=== PATIENT | female | born 1945 | race Caucasian/White ===

== ENCOUNTER → 2016-08-05 | Outpatient (REF) | payer MEDICARE ==
[~2016-08-05] MED LIST: CARD120T4 PO; LISI-538 PO; LISI10TA4 PO; LORA10TA2 PO; XARE20TA PO
[2016-08-05 11:49] LABS: MEAN CORPUSCULAR HEMOGLOBIN 33.8 pg (27.0-33.0); MEAN CORPUSCULAR HGB CONC 33.5 g/dl (32.0-36.5); MEAN CORPUSCULAR VOLUME 100.8 fl (80.0-96.0); RED CELL DISTRIBUTION WIDTH 12.8 % (11.5-14.5); WHITE BLOOD COUNT 6.1 K/mm3 (4.0-10.0)
[2016-08-05 12:20] LABS: ALBUMIN/GLOBULIN RATIO 1.43 (1.00-1.93); BILIRUBIN,TOTAL 0.7 MG/DL (0.2-1.0); CREATININE FOR GFR 1.14 MG/DL (0.55-1.02); FREE T4 1.13 NG/DL (0.76-1.46); GLOMERULAR FILTRATION RATE 49.7 (>39); POTASSIUM SERUM 5.1 MEQ/L (3.5-5.1); TOTAL PROTEIN 6.8 GM/DL (6.4-8.2)
== END ==
LOC: M SFHCPLAZ 08:30
PROVIDERS: ATTEND Family Medicine
DX: I48.0 Paroxysmal atrial fibrillation (principal); E78.4 Other hyperlipidemia

== ENCOUNTER → 2016-12-30 | Outpatient (REF) | payer MEDICARE ==
[2016-12-30 13:32] LABS: CALCIUM LEVEL 9.4 MG/DL (8.8-10.2); CREATININE FOR GFR 1.05 MG/DL (0.55-1.02); GLOMERULAR FILTRATION RATE 54.7 (>39); POTASSIUM SERUM 5.1 MEQ/L (3.5-5.1)
== END ==
LOC: M SFHCPLAZ 08:09
PROVIDERS: ATTEND Family Medicine
DX: R73.03 Prediabetes (principal)

== ENCOUNTER → 2018-10-05 | Outpatient (CLI) | payer MEDICARE ==
[~2018-10-05] MED LIST changes: +LORA-243 PO; -LORA10TA2 PO
[2018-10-05 13:01] LABS: HEMATOCRIT 48.6 % (36.0-47.0); HEMOGLOBIN 16.2 g/dl (12.0-15.5); MEAN CORPUSCULAR HEMOGLOBIN 33.1 pg (27.0-33.0); MEAN CORPUSCULAR HGB CONC 33.3 g/dl (32.0-36.5); MEAN CORPUSCULAR VOLUME 99.2 fl (80.0-96.0); PLATELET COUNT, AUTOMATED 241 10^3/uL (150-450); WHITE BLOOD COUNT 6.2 10^3/uL (4.0-10.0)
[2018-10-05 13:37] LABS: ALBUMIN 3.9 GM/DL (3.2-5.2); BILIRUBIN,TOTAL 0.7 MG/DL (0.2-1.0); CALCIUM LEVEL 9.3 MG/DL (8.8-10.2); CHOLESTEROL RISK RATIO 3.657 (<5); CREATININE FOR GFR 1.05 MG/DL (0.55-1.30); FREE T4 1.02 NG/DL (0.76-1.46); GLOMERULAR FILTRATION RATE 54.4 (>39); POTASSIUM SERUM 4.8 MEQ/L (3.5-5.1); THYROID STIMULATING HORMONE 1.33 uIU/ML (0.358-3.740); TOTAL PROTEIN 6.7 GM/DL (6.4-8.2)
[2018-10-05 13:52] LABS: MALB URINE SIEMENS 45.8 MG/L; MAU/CREAT RATIO 21.8 MCG/MG (0.0-30.0)
[2018-10-05 14:22] LABS: HEMOGLOBIN A1c 5.7 %
== END ==
LOC: M WUC 08:41
PROVIDERS: ATTEND Family Medicine
DX: I48.0 Paroxysmal atrial fibrillation (principal); I11.9 Hypertensive heart disease without heart failure; E78.49 Other hyperlipidemia; E11.9 Type 2 diabetes mellitus without complications

== ENCOUNTER 2020-08-22 18:34 | Inpatient (IN) | payer MEDICARE ==
[~2020-08-22] VITALS: Ht 162.6 cm; Wt 83.4 kg
[~2020-08-22 18:34] MED LIST changes: -LISI-538 PO; +LISI10TA22 PO; -LISI10TA4 PO; +LISI20TA33 PO
[2020-08-22] MEDS ORDERED: DILT1TAB3 (18:55)
[2020-08-22] MEDS ORDERED: KETOROLAC 30 MG/ML 1ML VIAL IV ONE (20:05)
[2020-08-22 20:26] LABS: BASO % 0.2 % (0.0-1.0); HEMATOCRIT 42.1 % (36.0-47.0); HEMOGLOBIN 13.9 g/dl (12.0-15.5); LYMPH # 1.4 10^3/uL (1.5-5.0); MEAN CORPUSCULAR HEMOGLOBIN 32.6 pg (27.0-33.0); MEAN CORPUSCULAR VOLUME 98.6 fl (80.0-96.0); MONO # 0.6 10^3/uL (0.0-0.8); MONO % 4.1 % (2.0-8.0); NEUTROPHILS # 12.8 10^3/uL (1.5-8.5); NEUTROPHILS % 85.9 % (36.0-66.0); PLATELET COUNT, AUTOMATED 309 10^3/uL (150-450); RED BLOOD COUNT 4.27 10^6/uL (4.00-5.40)
[2020-08-22] MEDS ORDERED: ISOVUE-370 76% 100ML VIAL As Ordered ONE (20:53)
[2020-08-22 20:54] LABS: ALBUMIN 2.9 GM/DL (3.2-5.2); BILIRUBIN,DIRECT 0.2 MG/DL (0.0-0.2); BILIRUBIN,TOTAL 0.3 MG/DL (0.2-1.0); TOTAL PROTEIN 6.6 GM/DL (6.4-8.2)
--- NOTE | 2020-08-22 20:57 | REPVR ---
PROCEDURE INFORMATION: Exam: XR Right Hip Exam date and time: 08/22/2020 8:23 PM Age: 75 years old Clinical indication: Other: Hip pain TECHNIQUE: Imaging protocol: XR Right hip. Views: 2 or 3 views hip with pelvis when performed. COMPARISON: No relevant prior studies available. FINDINGS: Bones/joints: Degenerative changes of the lower lumbar spine. No fracture. The hip joint is adequately well maintained. Soft tissues: Unremarkable. IMPRESSION: Negative right hip. Electronically signed by: Ernesto Machado On 08/22/2020 20:56:53 PM
--- NOTE | 2020-08-22 22:09 | REPVR ---
PROCEDURE INFORMATION: Exam: CT Abdomen And Pelvis With Contrast Exam date and time: 08/22/2020 8:55 PM Age: 75 years old Clinical indication: Abdominal pain; Generalized; Additional info: Abdominal pain on rlq TECHNIQUE: Imaging protocol: Computed tomography of the abdomen and pelvis with contrast. Radiation optimization: All CT scans at this facility use at least one of these dose optimization techniques: automated exposure control; mA and/or kV adjustment per patient size (includes targeted exams where dose is matched to clinical indication); or iterative reconstruction. Contrast material: ISOVUE 370; Contrast volume: 100 ml; Contrast route: INTRAVENOUS (IV); COMPARISON: CR Hip, Ap,Lat RIGHT 08/22/2020 8:08 PM FINDINGS: Lungs: Slight bibasilar interstitial coarsening. Liver: Probable small right hepatic cyst measuring up to 8 mm. Gallbladder and bile ducts: Normal. No calcified stones. No ductal dilation. Pancreas: Normal. No ductal dilation. Spleen: Normal. No splenomegaly. Adrenal glands: Normal. No mass. Kidneys and ureters: Nonobstructing right renal calculus. Stomach and bowel: There is colonic diverticulosis without evidence of diverticulitis. Appendix: Large collection of fluid and gas which is irregular in configuration in the lateral right abdomen which measures approximately 5.1 x 5.5 x 5.0 cm. This extends caudally and laterally from the cecal tip. There is associated fluid-filled tubular structure along the medial aspect of the collection with some areas of an incomplete wall suggesting the appendix which has ruptured. The collection of fluid also contains a few calcific densities which are likely appendicoliths. Findings are most consistent with ruptured appendicitis with large periappendiceal abscess. Intraperitoneal space: Unremarkable. No free air. No significant fluid collection. Vasculature: Unremarkable. No abdominal aortic aneurysm. Lymph nodes: Unremarkable. No enlarged lymph nodes. Urinary bladder: Unremarkable as visualized. Reproductive: Unremarkable as visualized. Bones/joints: Unremarkable. No acute fracture. Soft tissues: Unremarkable. IMPRESSION: 1. Ruptured appendicitis with periappendiceal abscess which contains a few appendicoliths and measures 5.1 x 5.5 x 5.0 cm. 2. Nonobstructing right renal calculus. 3. Colonic diverticulosis without diverticulitis. Electronically signed by: Ernesto Machado On 08/22/2020 22:09:09 PM
[2020-08-22] MEDS ORDERED: PIPERACILLIN/TAZOBACTAM SOD 3.375 GM in D5W MINI-BAG PLUS 50 ML IV ONE (22:20)
[2020-08-22] MEDS ORDERED: MORPHINE 2 MG/ML 1ML VIAL (J2270) IV ONE (22:30)
[2020-08-22] MEDS ORDERED: ONDANSETRON 4MG/2ML VIAL IV ONE (22:30)
[2020-08-22] MEDS ORDERED: D31000TA2 PO (23:18)
[2020-08-22] MEDS ORDERED: OYST1TAB PO (23:18)
[2020-08-22] MEDS ORDERED: VITMTA PO (23:18)
[2020-08-22] MEDS ORDERED: ZINC1TAB2 PO (23:18)
[2020-08-22] MEDS ORDERED: AIRB1CHW PO (23:18)
[2020-08-22] MEDS ORDERED: DILT240C82 PO (23:19)
[2020-08-22 23:25] LABS: RSV AMPLIFICATION NEGATIVE (NEGATIVE)
[2020-08-23] VITALS (7 sets, daily range): BP systolic 110–155; BP diastolic 70–89
[2020-08-23] MEDS ORDERED: ONDANSETRON 4MG/2ML VIAL IV PRN
--- NOTE | 2020-08-23 01:31 | HPE ---
HISTORY AND PHYSICAL DATE OF ADMISSION: 08/23/2020 ADMITTING DIAGNOSIS: Appendicitis with abscess. HISTORY OF PRESENT ILLNESS: The patient presented to the Emergency Department on the evening of the 22 of August complaining of pain in the low right lower quadrant of the abdomen, which had begun approximately five days earlier. Pain had always been in the same spot. It has worsened in intensity with each passing day. She believes she had some sweats about two days ago, but has not noticed any definite fever. The discomfort became so severe that walking became quite painful. She therefore presented to the Emergency Department for evaluation. She was found to have tenderness in the right lower quadrant laterally. She had labs that showed an elevated white blood cell count to 15,[address] scan of the abdomen and pelvis was obtained, which showed an abscess with evidence for appendicitis. She is now for admission for management of her appendiceal abscess. ALLERGIES: Patient has no known allergies. MEDICATIONS: Include: 1. Loratadine 10 mg p.o. daily. 2. Lisinopril 20 mg p.o. daily. 3. Vitamin D3 1,000 units p.o. daily. 4. Multivitamin daily. 5. Calcium carbonate 500 mg tablets daily. 6. Zinc 50 mg one tablet daily. 7. Diltiazem extended release 240 mg capsules once daily. 8. Aspirin one daily. PAST SURGICAL HISTORY: Patient has had a tubal ligation. She has had cataract surgery. PAST MEDICAL HISTORY: Significant for hypertension, she has atrial fibrillation, but has apparently declined any anticoagulation other than a daily aspirin. She has some allergies. She has a history of hyperlipidemia as well as type 2 diabetes. REVIEW OF SYSTEMS: Shows that the patient has had no history of stroke or seizure or chronic severe headaches. She denies any chest pain or palpitations, and does not know when she is or is not in atrial fibrillation. She has no cough or wheezing or sputum production. She denies any abdominal pain prior to her current episode. She has had no rectal bleeding. She denies any particular bone or joint issues. She denies any history of DVT or pulmonary embolus. She has been voiding without difficulty. SOCIAL HISTORY: Patient is . She is a nonsmoker and denies excessive alcohol intake. FAMILY HISTORY: Patient's father was in his late 70's from cancer and her mother in her mid 80's for unknown reasons. PHYSICAL EXAMINATION: Reveals a moderately obese pleasant woman lying quietly on the hospital stretcher. At the time of my exam, her pulse had been recorded as 104 and she had a temperature of 99.6 degrees. Her blood pressure was good and her room oxygen saturation was normal. Patient's skin was warm and dry. Sclerae are anicteric. Mucous membranes are moist. The neck shows no bruits. There is no mass evident. Heart exam shows an irregularly irregular rhythm. Lungs are clear to auscultation bilaterally. The abdomen is mildly to moderately obese. She has bowel sounds present in all four quadrants. She has no evident scars. She has a soft abdomen with tenderness to palpation in the lateral right lower quadrant. The remainder of the abdomen is without significant tenderness. Extremities are without edema. She has palpable radial and pedal pulses. LABORATORY STUDIES: White count 15,000. Differential count shows 86% neutrophils and 9% lymphocytes. Hemoglobin 14, hematocrit 42 and platelet count 309,000. She had a point of care chemistry profile showing sodium 134, potassium 3.4, chloride 96, CO2 28 and glucose 121, BUN 12 with creatinine 1. Remaining chemistry profile showed normal bilirubin with AST of 71, ALT of 104 and alkaline phosphatase of 173. Total protein 6.6 with albumin of 2.9. Lipase was normal as is the lactic acid. A urinalysis was done, which showed 3+ leukocyte esterase with 42 white cells and 5 red cells per high powered field. COVID serology was negative. IMAGING: She had a CT scan of the abdomen and pelvis, that revealed an abscess in the right lower quadrant surrounding the inflamed appendix. There appeared to be a couple of appendicoliths free within the abscess. She was noted to have a small renal stone on the right as well as some diverticulosis without diverticulitis of the colon. There was no evidence of any free intraabdominal fluid or free air. IMPRESSION: 1. Appendicitis with contained abscess. 2. Atrial fibrillation. 3. Hypertension. 4. Hyperlipidemia. 5. Diabetes mellitus type 2. 6. Obesity. PLAN: Patient was counseled that she has a contained abscess surrounding her inflamed appendix. I have recommended that we treat her with a percutaneous drain placement and antibiotics. She has already received one dose of Zosyn in the Emergency Department. I will continue this after admission. I will keep her n.p.o. tonight and arrange for her to have a percutaneous drain placed by the radiologist or interventional radiology in the morning. She will be provided with analgesics as necessary. She was counseled that surgical intervention right now would result in spillage of her abscess within the abdomen and potentially increase her risk for a worse infection. I advised her that if we are successful in treating her nonoperatively at this time that in the future once her infection has all cleared up, it may be prudent to return and perform an interval appendectomy. She had an opportunity to ask questions. She is agreeable with the plan. CHERYLE
[2020-08-23] MEDS: LR 1,000 ML IV SCH ×2 (02:05→10:35)
[2020-08-23] MEDS: PIPERACILLIN/TAZOBACTAM SOD 3.375 GM in D5W MINI-BAG PLUS 50 ML IV SCH ×4 (05:00→22:10)
[2020-08-23] MEDS: KETOROLAC 30 MG/ML 1ML VIAL IV PRN ×2 (05:00→10:57)
[2020-08-23 09:36] LABS: BASO % 0.2 % (0.0-1.0); HEMATOCRIT 36.4 % (36.0-47.0); HEMOGLOBIN 12.2 g/dl (12.0-15.5); LYMPH # 1.2 10^3/uL (1.5-5.0); LYMPH % 9.3 % (24.0-44.0); MEAN CORPUSCULAR HEMOGLOBIN 33.1 pg (27.0-33.0); MEAN CORPUSCULAR HGB CONC 33.5 g/dl (32.0-36.5); MEAN CORPUSCULAR VOLUME 98.6 fl (80.0-96.0); MONO # 0.8 10^3/uL (0.0-0.8); NEUTROPHILS # 11.1 10^3/uL (1.5-8.5); NEUTROPHILS % 83.7 % (36.0-66.0); PLATELET COUNT, AUTOMATED 276 10^3/uL (150-450); RED BLOOD COUNT 3.69 10^6/uL (4.00-5.40); WHITE BLOOD COUNT 13.2 10^3/uL (4.0-10.0)
[2020-08-23] MEDS: MULTIVITAMINS/MINERALS THERAP 1 TAB PO SCH (10:29)
[2020-08-23] MEDS: LORATADINE 10 MG TAB PO SCH (10:35)
[2020-08-23] MEDS: MORPHINE 2 MG/ML 1ML VIAL (J2270) IV PRN ×2 (11:03→20:51)
[2020-08-23] MEDS ORDERED: LIDOCAINE 1% MDV 20ML VIAL As Ordered ONE (11:25)
[2020-08-23] MEDS: POTASSIUM CHLORIDE 10 MEQ SR TABLET PO SCH ×3 (14:43→20:52)
--- NOTE | 2020-08-23 16:22 | REP ---
INDICATION: appendiceal abscess. COMPARISON: None. TECHNIQUE: The procedure was performed under the personal supervision of Dr. Jaiems. Patient has a history of a 5.1 x 5.5 x 5 cm periappendiceal abscess seen on a previous CT scan dated 08/22/2020. The risks and benefits of the procedure were explained to the patient and informed consent was obtained. The abscess was localized using ultrasound guidance. The skin was prepped and draped in a sterile fashion. 1% lidocaine was used as a local anesthetic. Using ultrasound guidance an 8 Arabic skater APDL catheter was inserted using trocar technique. 45 cc of brown colored proteinaceous fluid was withdrawn and sent to the lab for analysis. The abscess cavity was flushed with 410 cc aliquots of sterile saline. The catheter was affixed to the skin and a sterile dressing was applied. The catheter was connected to a gravity drainage bag. The patient tolerated the procedure well and there were no immediate complications. After the appropriate amount to monitored convalescence the patient was discharged from the department. FINDINGS: None IMPRESSION: Ultrasound-guided periappendiceal abscess drain with catheter placement. <Electronically signed by Dale Bhakta > 08/23/20 1614 <Electronically signed by Zaid Jaimes > 08/23/20 161
[2020-08-23] MEDS: ACETAMINOPH W/CODEINE #3 TAB UD PO PRN ×2 (17:55→22:10)
--- NOTE | 2020-08-23 18:23 | IPN ---
PROGRESS NOTE DATE: 08/23/2020 HISTORY: Patient was admitted early this morning with a roughly 5-day history of worsening right lower quadrant abdominal pain. She was found to have an elevated white count with a CT showing an appendiceal abscess, which was well walled off. She was scheduled for an ultrasound-guided drain placement, which was accomplished later this morning. She reports that her discomfort is significantly improved with the antibiotics and drainage. She tolerated some clear liquids at lunchtime/ Vital signs show that she has been afebrile since admission. Her pulse has remained variable. During her drainage procedure, it was noted to be approximately 160, and since return from the drain placement she is back down to about 108 most recently. Blood pressure is good. Intake and output show that she has had adequate urine output, though it is not well recorded. PHYSICAL EXAMINATION: Patient is alert and appears much more comfortable. Heart exam shows a very irregular rate at about 100-110. The lungs are clear. The abdomen is soft with active bowel sounds. She has a new drainage catheter draining some watery feculent-looking material into a drainage bag. LABORATORY STUDIES: Today show a white count of 13,000 with a differential showing 84% neutrophils and 9% lymphocytes. This is slightly improved from late last night. IMPRESSION: Patient is doing better now with antibiotics and drainage of her abscess. PLAN: We will continue the drain for now. Her Zosyn will be continued. We will recheck her labs in the morning. Her diet will be advanced from clear liquids to regular as tolerated. She was encouraged to be up ambulating. I counseled her that she will likely remain in the hospital for another day or two and then probably go home with the drain in place on oral antibiotics. CHERYLE
--- NOTE | 2020-08-23 21:06 | ECGEPIP ---
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 Electronically Signed on 08-23-2020 21:06:27 EDT by Jerald Villafana
[2020-08-23] MEDS ORDERED: PILL CUTTER 1 EACH XX PRN (22:55)
[2020-08-23] MEDS: SIMETHICONE 80MG CHEW TAB PO PRN (23:51)
[2020-08-24] MEDS: MORPHINE 2 MG/ML 1ML VIAL (J2270) IV PRN (01:36)
[2020-08-24 02:27] VITALS: BP 114/78
[2020-08-24] MEDS: PIPERACILLIN/TAZOBACTAM SOD 3.375 GM in D5W MINI-BAG PLUS 50 ML IV SCH ×4 (05:59→22:45)
[2020-08-24] MEDS: SIMETHICONE 80MG CHEW TAB PO PRN (05:59)
[2020-08-24] MEDS: ACETAMINOPH W/CODEINE #3 TAB UD PO PRN ×2 (06:01→20:18)
[2020-08-24 06:54] VITALS: BP 116/76
[2020-08-24] MEDS: LORATADINE 10 MG TAB PO SCH (08:09)
[2020-08-24] MEDS: MULTIVITAMINS/MINERALS THERAP 1 TAB PO SCH (08:09)
[2020-08-24 08:49] LABS: BASO % 0.3 % (0.0-1.0); EOS % 0.1 % (0.0-3.0); HEMATOCRIT 39.8 % (36.0-47.0); HEMOGLOBIN 13.1 g/dl (12.0-15.5); LYMPH # 1.2 10^3/uL (1.5-5.0); LYMPH % 9.2 % (24.0-44.0); MEAN CORPUSCULAR HEMOGLOBIN 32.7 pg (27.0-33.0); MEAN CORPUSCULAR HGB CONC 32.9 g/dl (32.0-36.5); MEAN CORPUSCULAR VOLUME 99.3 fl (80.0-96.0); MONO # 0.4 10^3/uL (0.0-0.8); NEUTROPHILS % 85.8 % (36.0-66.0); PLATELET COUNT, AUTOMATED 348 10^3/uL (150-450); RED BLOOD COUNT 4.01 10^6/uL (4.00-5.40); WHITE BLOOD COUNT 12.8 10^3/uL (4.0-10.0)
[2020-08-24 09:01] LABS: BLOOD UREA NITROGEN 15 MG/DL (7-18); CALCIUM LEVEL 8.3 MG/DL (8.8-10.2); CARBON DIOXIDE LEVEL 26 MEQ/L (21-32); CHLORIDE LEVEL 103 MEQ/L (98-107); CREATININE FOR GFR 0.85 MG/DL (0.55-1.30); GLOMERULAR FILTRATION RATE > 60.0 (>39); GLUCOSE, FASTING 171 MG/DL (70-100); POTASSIUM SERUM 4.2 MEQ/L (3.5-5.1); SODIUM LEVEL 136 MEQ/L (136-145)
[2020-08-24 10:00] VITALS: BP 112/74
--- NOTE | 2020-08-24 12:25 | IPNPDOC ---
Text Note Date of Service The patient was seen on 08/24/20. NOTE Gen. surgery. Dr Still. The patient is a 75-year-old female admitted 08/23/20 with worsening right lower quadrant abdominal pain and CT indicating appendiceal abscess which was well walled off. Status post ultrasound guided drain placement 08/23. The patient reports she is still having abdominal discomfort but it is improved compared to when she first came in. She had some pain overnight and was given Mylicon with some improvement. She denies nausea or vomiting. Initially 45 mL purulent drainage, over past 24 hours has had about 35 mL out in the drain. Afebrile Heart rate 106, respiratory rate 20, blood pressure 116/76, 97% room air. Gen. Patient is resting in bed, appears in no acute distress. MMM Lungs are clear to auscultation anteriorly. S1 and S2 irregularly irregular. Abdomen. Mildly distended but soft, tenderness is noted in the right upper and right lower quadrant areas. Drainage tube in place. Extremities are well-perfused with no edema. WBCs 12.8, downward trend. Hemoglobin 13.1, platelets 348. Blood culture 1 negative 24 hours. Abscess culture pending. Assessment/plan Appendiceal abscess status post drain placement. Patient is reviewed and examined as per this morning. Plan to continue with IV Zosyn. Drain in place. S/P irrigation as per Dr Still this AM. Abscess culture pending. A. fib. EKG atrial fibrillation on admission. Patient is known to have history of atrial fibrillation. Rate control with diltiazem 240 mg by mouth daily as outpatient. Same dose is continued. Heart rate trend 105-113. According to admission information the patient has declined anticoagulation other than a daily aspirin. Hypertension. Lisinopril 20 mg daily. Blood pressure 116/76 this morning. VS,Fishbone, I+O VS, Fishbone, I+O Laboratory Tests 08/24/20 08:04 Vital Signs Date Time Temp Pulse Resp B/P (MAP) Pulse Ox O2 Delivery O2 Flow Rate FiO2 08/24/20 10:00 97.6 126 20 112/74 (87) 95 Room Air I&O- Last 24 Hours up to 6 AM 08/24/20 06:00 Intake Total 1690 ml Output Total 230 ml Balance 1460 ml Attending Note Attending Note I agree with above note. Separate note by me generated. Una Leblanc Aug 24, 2020 12:25 Naeem Still Aug 24, 2020 13:46
--- NOTE | 2020-08-24 13:13 | IPN ---
PROGRESS NOTE DATE: 08/24/2020 HISTORY: Patient was admitted 2 days ago with appendicitis with a periappendiceal abscess. A drain was placed yesterday and drained some feculent looking fluid. She has been feeling somewhat better since the drain was placed. She remains on Zosyn. Vital signs show that she has been afebrile over the past 24 hours. Her pulse with her underlying atrial fibrillation has ranged between 105 and 130 generally over the last 24 hours. Blood pressure is good. Intake and output show that yesterday she had 1690 recorded in with only 230 recorded out but she had several voids that were not recorded. Her drain was recorded as having 30 mL yesterday and only 5 this morning. PHYSICAL EXAMINATION: Patient is lying quietly on the hospital bed looking quite comfortable. She is alert and oriented. Heart exam shows an irregularly irregular rhythm of approximately 100-110. The lungs are clear. The abdomen is obese and soft. She has some mild tenderness around the drain site. I irrigated the drain today with two 10 mL saline flushes and the return cleared quite a bit on the second flush with some light deluca fluid with a little bit of particulate debris coming back. LABORATORY STUDIES: Today: Showed a white count of 13, hemoglobin 13, hematocrit 40, and a platelet count of 348,000. Differential count showed 86% neutrophils and 9% lymphocytes. This is not significantly changed from yesterday. She had a chemistry profile today showing normal electrolytes with her potassium improved from 3.4 at the time of admission to 4.2. Her glucose is 171 today. Gram stain from her drain placement shows a variety of types of organisms with gram-positive cocci, some gram-negative rods and gram-positive rods. Cultures pending and will likely not be particularly helpful. IMPRESSION: Patient is doing well following placement of her drain for her periappendiceal abscess. She remains on Zosyn for antibiotic coverage. Her pulse remains irregular but she is not as tachycardic as she had been at the time of placement for her drain and seems to be doing well on her current medications. PLAN: Patient's drain will be continued for now. She will remain on her antibiotics. She is very leery about going home with the drain in place. I advised her that we would keep her in the hospital for another day or two on antibiotics to ensure that her white count returns to normal. I advised her that my partner, Dr. Lubin, will be covering this weekend and can make all decisions regarding her drain and discharge. If she remains here on Thursday, I will see her then. CHERYLE
[2020-08-24 14:00] VITALS: BP 109/71
[2020-08-24 20:33] VITALS: BP 123/67
[2020-08-24] MEDS: ACETAMINOPHEN TAB 650MG DOSE (2X325MG) PO PRN (22:55)
[2020-08-25] MEDS: PIPERACILLIN/TAZOBACTAM SOD 3.375 GM in D5W MINI-BAG PLUS 50 ML IV SCH ×3 (04:31→17:13)
[2020-08-25 04:38] VITALS: BP 126/82
[2020-08-25] MEDS: LORATADINE 10 MG TAB PO SCH (08:31)
[2020-08-25] MEDS: MULTIVITAMINS/MINERALS THERAP 1 TAB PO SCH (08:31)
[2020-08-25] MEDS: ACETAMINOPH W/CODEINE #3 TAB UD PO PRN ×2 (08:32→20:19)
--- NOTE | 2020-08-25 11:35 | IPNPDOC ---
Text Note Date of Service The patient was seen on 08/25/20. NOTE Gen. surgery. Dr Still. No acute events overnight. She is tolerating diet, and the pain is improved. The drain output is minimal, but it still looks like stool and is foul smelling. No nausea or emesis, and she is ambulating. VSSAF NAD Abdomen soft, slight tenderness around the drain in the RLQ only. no rebound or guarding, the drain is feculent labs - pending A) 75y/o female with perforated appendicitis s/p IR drain placement P) IV Zosyn. reg diet ambulate drain teaching I advised her that the drain will be in for a while, and offered for her to go home with the drain. She is not showing any interest in it yet, but she will try today, and possible d/c home tomorrow if she is comfortable. Juan Lubin DO VS,Fishbone, I+O VS, Fishbone, I+O Vital Signs Date Time Temp Pulse Resp B/P (MAP) Pulse Ox O2 Delivery O2 Flow Rate FiO2 08/25/20 09:02 18 08/25/20 08:32 126/82 08/25/20 08:31 107 08/25/20 04:38 96.0 94 08/24/20 20:33 Room Air I&O- Last 24 Hours up to 6 AM 08/25/20 06:00 Intake Total 2580 ml Output Total 965 ml Balance 1615 ml LISBET LUBIN DO Aug 25, 2020 11:35
[2020-08-25 12:15] LABS: HEMATOCRIT 37.1 % (36.0-47.0); HEMOGLOBIN 11.9 g/dl (12.0-15.5); MEAN CORPUSCULAR HEMOGLOBIN 32.3 pg (27.0-33.0); MEAN CORPUSCULAR HGB CONC 32.1 g/dl (32.0-36.5); MEAN CORPUSCULAR VOLUME 100.8 fl (80.0-96.0); PLATELET COUNT, AUTOMATED 389 10^3/uL (150-450); RED BLOOD COUNT 3.68 10^6/uL (4.00-5.40); WHITE BLOOD COUNT 13.7 10^3/uL (4.0-10.0)
[2020-08-25 14:00] VITALS: BP 126/78
[2020-08-25] MEDS ORDERED: MAGNESIUM CITRATE 300 ML BTL PO ONE (14:00)
[2020-08-25 20:27] VITALS: BP 145/93
[2020-08-26] MEDS: PIPERACILLIN/TAZOBACTAM SOD 3.375 GM in D5W MINI-BAG PLUS 50 ML IV SCH ×5 (00:13→23:43)
[2020-08-26 06:09] VITALS: BP 145/94
[2020-08-26 07:08] LABS: HEMATOCRIT 36.4 % (36.0-47.0); HEMOGLOBIN 11.9 g/dl (12.0-15.5); MEAN CORPUSCULAR HEMOGLOBIN 32.4 pg (27.0-33.0); MEAN CORPUSCULAR HGB CONC 32.7 g/dl (32.0-36.5); MEAN CORPUSCULAR VOLUME 99.2 fl (80.0-96.0); PLATELET COUNT, AUTOMATED 382 10^3/uL (150-450); RED BLOOD COUNT 3.67 10^6/uL (4.00-5.40); WHITE BLOOD COUNT 12.8 10^3/uL (4.0-10.0)
[2020-08-26] MEDS: MULTIVITAMINS/MINERALS THERAP 1 TAB PO SCH (08:11)
[2020-08-26] MEDS: LORATADINE 10 MG TAB PO SCH (08:11)
--- NOTE | 2020-08-26 10:01 | IPNPDOC ---
Text Note Date of Service The patient was seen on 08/26/20. NOTE No acute events overnight. She is tolerating diet, and the pain is improved. The drain output is minimal, but it still looks like stool and is foul smelling. No nausea or emesis, and she is ambulating. She did not get any drain teaching yesterday, and does not seem like she wants to go home with the drain still. I advised her that this will be in for a while, but she would like to wait and discuss it with Dr. Still tomorrow. VSSAF NAD Abdomen soft, slight tenderness around the drain in the RLQ only. no rebound or guarding, the drain is feculent labs - below A) 75y/o female with perforated appendicitis s/p IR drain placement P) IV Zosyn. reg diet ambulate drain teaching I advised her that the drain will be in for a while, and offered for her to go home with the drain. She is not showing any interest in it yet, but she will try today, and possible d/c home tomorrow after she talks to Dr. Cheko Lubin DO VS,[place], I+O VS, [place], I+O Laboratory Tests 08/25/20 11:50 08/26/20 06:53 Vital Signs Date Time Temp Pulse Resp B/P (MAP) Pulse Ox O2 Delivery O2 Flow Rate FiO2 08/26/20 08:12 144/86 08/26/20 08:12 112 08/26/20 06:09 98.3 20 95 Room Air I&O- Last 24 Hours up to 6 AM 08/26/20 06:00 Intake Total 1890 ml Output Total 750 ml Balance 1140 ml LISBET LUBIN DO Aug 26, 2020 10:01
[2020-08-26] MEDS: ACETAMINOPH W/CODEINE #3 TAB UD PO PRN ×2 (13:31→20:28)
[2020-08-26 14:00] VITALS: BP 127/75
[2020-08-26 22:00] VITALS: BP 140/85
[2020-08-27] MEDS: PIPERACILLIN/TAZOBACTAM SOD 3.375 GM in D5W MINI-BAG PLUS 50 ML IV SCH ×4 (05:14→22:42)
[2020-08-27] MEDS: ACETAMINOPHEN TAB 650MG DOSE (2X325MG) PO PRN ×2 (05:28→15:18)
[2020-08-27 06:00] VITALS: BP 139/97
[2020-08-27] MEDS: LORATADINE 10 MG TAB PO SCH (08:15)
[2020-08-27] MEDS: MULTIVITAMINS/MINERALS THERAP 1 TAB PO SCH (08:15)
[2020-08-27] MEDS: ACETAMINOPH W/CODEINE #3 TAB UD PO PRN ×2 (08:16→20:30)
--- NOTE | 2020-08-27 09:05 | IPNPDOC ---
Text Note Date of Service The patient was seen on 08/27/20. NOTE Gen. surgery. Dr Still. The patient is a 75-year-old female admitted 08/23/20 with worsening right lower quadrant abdominal pain and CT indicating appendiceal abscess which was well walled off. Status post ultrasound guided drain placement 08/23. The patient reports she is using better overall. She states she only has abdominal pain around the area of the drainage tube. She denies nausea or vomiting. Drain output has been minimal over the weekend but looks like stool and has been foul-smelling. Tmax 99.7 Heart rate this morning 120, trend has been 99-132., respiratory rate 18, blood pressure 139/88, 97% room air. Gen. Patient is sitting in the chair eating breakfast, appears in no acute distress. MMM Lungs CTA S1 and S2 irregularly irregular. Abdomen. Nondistended, soft, slight tenderness around the drain tube only. Drainage tube in place which is draining what appears to be stool, there is a small amount in the drainage bag. Extremities are well-perfused with no edema. No new labs Blood culture 1 negative Abscess culture Escherichia coli and strep anginosus Assessment/plan Appendiceal abscess status post drain placement. D5 IV Zosyn. Drain in place. 20 ml drainage yesterday. A. fib. EKG atrial fibrillation on admission. Patient is known to have history of atrial fibrillation. Rate control with diltiazem 240 mg by mouth daily as outpatient. Same dose is continued. Heart rate trend 73120. According to admission information the patient had declined anticoagulation other than a daily aspirin. Hypertension. Lisinopril 20 mg daily. Blood pressure controlled. VS,Fishbone, I+O VS, Fishbone, I+O Vital Signs Date Time Temp Pulse Resp B/P (MAP) Pulse Ox O2 Delivery O2 Flow Rate FiO2 08/27/20 08:16 18 08/27/20 08:16 120 139/88 08/27/20 06:00 97.9 97 Room Air I&O- Last 24 Hours up to 6 AM 08/27/20 06:00 Intake Total 2500 ml Output Total 1270 ml Balance 1230 ml Attending Note Attending Note I saw patient later in day. Developed fever in afternoon. Having increased pain at drain site with redness. Was feeling better earlier in day. Labs not repeated today. Having little out of drain. PEx: Abdomen with drain in lateral RLQ. Area of redness and edema surrounds drain site and extends to flank and back. 15-20 cm area of redness. No fluctuance or crepitance. Abdomen otherwise soft and nontender. CT ordered to evaluate for abscess at drain site or necrotizing fasciitis. Few small air bubbles noted in abd wall adjacent to drain tract with edema. No definite abscess. Antibiotics changed to Levaquin and Flagyl. Hospitalist consulted for increased tachycardia. Patient has also told nurses she is willing to take anticoagulation for her Afib so the hospitalist can address this as well. Una Leblanc Aug 27, 2020 09:05 Naeem Still Aug 27, 2020 20:12
[2020-08-27 10:00] VITALS: BP 140/88
[2020-08-27 15:00] VITALS: BP 150/96
--- NOTE | 2020-08-27 17:24 | REP ---
INDICATION: increased pain/swelling/redness at drain site RLQ COMPARISON: None. TECHNIQUE: CT Scan of the abdomen and pelvis was performed without intravenous contrast. Sagittal and coronal reconstruction images performed. FINDINGS: Lung bases: Unremarkable. Liver: Grossly unremarkable. Gallbladder: Unremarkable. Spleen: Grossly unremarkable.. Adrenals: Normal. Pancreas: Grossly unremarkable.. Kidneys: There is no hydronephrosis bilaterally. There appears to be a small cyst posteriorly in the mid right kidney. There is a small subcentimeter calculus in the lower pole of the right kidney. Small and large bowel: Grossly unremarkable. There is sigmoid diverticulosis. A pigtail drainage catheter is seen with its distal end coiled just beneath the abdominal wall musculature in the right lower quadrant at the site of the prior abscess. There is mild adjacent residual inflammatory change and a small amount of air is seen adjacent to this portion of the catheter. In the adjacent superficial soft tissues of the abdominal wall along the course of the catheter there are tiny foci of air surrounding the catheter and there is diffuse ill-defined density in the fat compatible with edema and possible cellulitis. No focal fluid collection is seen. Free fluid: None. Abdominal aorta: No aneurysm. Adenopathy: None. Osseous structures: There are degenerative changes of the spine without compression deformity. Pelvis: No mass. No bladder calculus seen. IMPRESSION: The abscess drainage catheter is noted in the right lower quadrant. Adjacent to the distal end within the right lower quadrant there is mild residual inflammatory change in a very small amount of air adjacent to the tip of the catheter. In the more superficial soft tissues of the right lower quadrant abdominal wall there are tiny foci of air surrounding the catheter with adjacent ill-defined density representing edema and possible cellulitis. No focal abscess collection is seen in this region. <Electronically signed by Joe Block > 08/27/20 [id number]
--- NOTE | 2020-08-27 17:39 | CR ---
CONSULTATION DATE: 08/27/2020 REASON FOR CONSULTATION: Carolina was seen on . She was admitted with a periappendiceal abscess. We are asked to see her related to her atrial fibrillation and her steadfast declining of anticoagulant therapy for this condition. Her atrial fibrillation was diagnosed November of 2015. Since that date and on numerous office visits, most recently 10/07/2018, the patient has steadfastly declined anticoagulation. She has been fully appraised of the risks associated with it and has elected to take aspirin for thromboembolic prophylaxis. I spoke with her today and she has no intention of changing that decision. MEDICAL HISTORY: She has a history of type-2 diabetes diagnosed 09/23 treated with dietary therapy, hypertensive heart disease, hyperlipidemia with a ten year ASCVD risk that exceeds 10% for which she declined statin use. She had an echocardiogram done 07/23. Left atrium was 42 mm. Ejection fraction was 75%. She has not been in the office in almost a year. MEDICATIONS: 1. Diltiazem ER 240 mg daily. 2. Lisinopril 20 mg daily. 3. Aspirin 325 mg daily. ALLERGIES: None. SOCIAL HISTORY: She does not smoke. Drinks alcohol on rare occasions. She is . 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 FAMILY HISTORY: Father of unknown cancer. REVIEW OF SYSTEMS: No epistaxis, rectal bleeding, hematuria. She is having intermittent fevers and is now getting repeat CT scan done. PHYSICAL EXAMINATION: VITAL SIGNS: When I saw her this morning her blood pressure was 140/88, pulse 120, respiratory rate 18, 98% O2 saturation. Temperature this afternoon was 101.4 degrees. GENERAL APPEARANCE: She was resting comfortably in no distress. HEENT: Unremarkable. LUNGS: Clear. HEART: Regular rate and rhythm. Tachycardic. ABDOMEN: Soft, mildly tender. EXTREMITIES: Trace peripheral edema. LABS: Yesterday her white count was 12.8, hemoglobin 11.9, platelets 382. Sodium three days ago was 136, potassium 4.2, glucose 171. COVID test was negative. She had an abscess drained by Interventional Radiology that grew out E. coli. Sensitivities were reviewed. IMPRESSION AND PLAN: 1. Atrial fibrillation with uncontrolled ventricular response. We will change her Diltiazem dosing of the daily total dose. 2. Low dose Digoxin which I will do with a single dose of intravenous Digoxin 0.[address] Farooq will be assuming her care tomorrow and can adjust her medications for rate control. This patient has declined anticoagulant therapy for atrial fibrillation since her diagnosis in 2016 and continues to opt for Aspirin after having been fully appraised (after a dozen office visits since her diagnosis of the risks associated with it including a discussion today) 3. Hypertension. Blood pressure is mildly elevated probably due to pain. Continue Lisinopril. Continue Diltiazem. I would update her medications. She has not had electrolytes in three days. Also check a magnesium level and for sake of completeness, we will get thyroid functions. 4. Abscess. Treatment per Surgery.
[2020-08-27 17:58] VITALS: BP 117/79
[2020-08-27] MEDS ORDERED: DIGOXIN INJ 0.5 MG/2 ML AMP (J1160) IV ONE (18:00)
[2020-08-27 18:16] LABS: FREE T4 1.14 NG/DL (0.76-1.46); THYROID STIMULATING HORMONE 0.948 uIU/ML (0.358-3.740)
[2020-08-27 18:40] VITALS: BP 113/81
[2020-08-27] MEDS: metroNIDAZOLE 500 MG in IV 1 EA IV SCH (20:31)
[2020-08-27 22:00] VITALS: BP 114/68
[2020-08-28] MEDS: LevoFLOXacin IV 500 MG in IV 1 EA IV SCH (00:11)
[2020-08-28 02:00] VITALS: BP 132/78
[2020-08-28] MEDS: metroNIDAZOLE 500 MG in IV 1 EA IV SCH ×3 (04:24→19:54)
[2020-08-28] MEDS: PIPERACILLIN/TAZOBACTAM SOD 3.375 GM in D5W MINI-BAG PLUS 50 ML IV SCH ×2 (05:54→11:13)
[2020-08-28 05:59] LABS: HEMATOCRIT 34.2 % (36.0-47.0); HEMOGLOBIN 11.3 g/dl (12.0-15.5); MEAN CORPUSCULAR HEMOGLOBIN 32.8 pg (27.0-33.0); MEAN CORPUSCULAR VOLUME 99.1 fl (80.0-96.0); PLATELET COUNT, AUTOMATED 428 10^3/uL (150-450); RED BLOOD COUNT 3.45 10^6/uL (4.00-5.40); WHITE BLOOD COUNT 18.4 10^3/uL (4.0-10.0)
[2020-08-28 06:00] VITALS: BP 126/74
[2020-08-28 06:27] LABS: BLOOD UREA NITROGEN 11 MG/DL (7-18); CALCIUM LEVEL 8.1 MG/DL (8.8-10.2); CARBON DIOXIDE LEVEL 29 MEQ/L (21-32); CHLORIDE LEVEL 103 MEQ/L (98-107); CREATININE FOR GFR 0.71 MG/DL (0.55-1.30); GLOMERULAR FILTRATION RATE > 60.0 (>39); GLUCOSE, FASTING 99 MG/DL (70-100); MAGNESIUM LEVEL 2.4 MG/DL (1.8-2.4); POTASSIUM SERUM 4.6 MEQ/L (3.5-5.1); SODIUM LEVEL 137 MEQ/L (136-145)
[2020-08-28] MEDS: ASPIRIN 81MG ENTERIC TABLET PO SCH (09:00)
[2020-08-28] MEDS: MULTIVITAMINS/MINERALS THERAP 1 TAB PO SCH (09:32)
[2020-08-28] MEDS: LORATADINE 10 MG TAB PO SCH (09:33)
--- NOTE | 2020-08-28 09:55 | IPNPDOC ---
Text Note Date of Service The patient was seen on 08/28/20. NOTE Gen. surgery. Dr Still. The patient is a 75-year-old female admitted 08/23/20 with worsening right lower quadrant abdominal pain and CT indicating appendiceal abscess which was well walled off. Status post ultrasound guided drain placement 08/23. The patient was noted to have increased pain around the drain site with redness yesterday afternoon. CT was requested to evaluate for abscess at drain site, images were reviewed by Dr. Still and the patient was noted to have a few small air bubbles in the abdominal wall adjacent to the drain tract with edema. No definite abscess. Antibiotics were changed to Levaquin and Flagyl. Tmax 101.4 1500 08/27/20. 99.1 this morning. Heart rate this morning 96, trend 91-122. respiratory rate 18, blood pressure 126/74, 95% room air. Gen. Patient is sitting in the chair, appears in no acute distress. MMM Lungs CTA S1 and S2 irregularly irregular. Abdomen. Nondistended, soft, drain tube right abdomen with dressing in place, there is still some erythema surrounding the drain site area right flank but not increased from yesterday, slightly warm to touch. Drainage tube in place with scant amount brown liquid in the drainage bag. Extremities are well-perfused with no edema. WBC 18.4 Hemoglobin 11.3, platelets 428. Blood culture 1 negative Abscess culture Escherichia coli and strep anginosus, sensitive to Levaquin. Assessment/plan Appendiceal abscess status post drain placement. The patient is reviewed with Dr. Still. Fever of 101.4 yesterday afternoon, white blood cell count noted to be 18.[address] 08/27/20 few small air bubbles in the abdominal wall adjacent to the drain tract with edema. No definite abscess. Area of erythema around the drainage tube right flank appears to be about the same as yesterday. Drain in place. Drainage amount not recorded yesterday. Continue IV Levaquin/Flagyl. A. fib./Hypertension Management as per hospitalist. VS,Fishbone, I+O VS, Fishbone, I+O Laboratory Tests 08/28/20 05:35 Vital Signs Date Time Temp Pulse Resp B/P (MAP) Pulse Ox O2 Delivery O2 Flow Rate FiO2 08/28/20 09:32 119/63 08/28/20 06:00 99.1 96 19 95 Room Air I&O- Last 24 Hours up to 6 AM 08/28/20 05:59 Intake Total 1800 ml Output Total 1950 ml Balance -150 ml Attending Note Attending Note I saw patient about 1700 tonight. Looks a bit more comfortable. Temp staying down since yesterday. WBC up today to 18K. Redness of right flank less extensive though still with induration and redness around drain site. Imp: Cellulitis around drain site improved. Plan: Continue Abx/ check WBC with diff in am/ follow drain output/ limited I and D at drain site tomorrow. Una Leblanc Aug 28, 2020 09:55 Naeem Still Aug 28, 2020 19:53
[2020-08-28 10:00] VITALS: BP 118/64
--- NOTE | 2020-08-28 11:28 | IPNPDOC ---
Text Note Date of Service The patient was seen on 08/28/20. NOTE Subjective: Patient is a 75-year-old female with a PMHx A. fib (on ASA), HTN, DM2, DLP, who presented to the emergency room with abdominal pain, found to have periappendiceal abscess. This is currently being managed by surgery and she was admitted to the general surgery service. Hospitalist service was consulted for medical management of A. fib and possible anticoagulation. Patient was seen and examined at the bedside. Currently denies any CP, SOB or palpitations. Denies any N/V, reports some abdominal pain. Denies any constipation, diarrhea, or burning with urination. Objective: Vitals (See below) General: Lying in bed, appears comfortable, AAOx3 HEENT: NC, AT CVS: +S1S2 Lungs: Fair air entry b/l, -w/r/r Abdomen: Soft, ND, tenderness at RLQ Extremities: No edema appreciated, - Calf tenderness Assessment and plan: Atrial fibrillation with uncontrolled ventricular response - Denies any symptoms; no chest pain / palpitations - c/w adjusted rate control with Diltiazem - Discussed anticoagulation with patient; currently, we'll continue with aspirin alone we'll hold off on Eliquis as she has strong feelings about starting it, given the risk of bleed - risks and benefits were discussed - Patient continue to pursue the discussion as an outpatient HTN - BP well controlled - c/w Diltiazem, Lisinopril DM2 - Diet controlled DLP - Currently not on a statin - Will have outpatient follow up with PCP Abscess - Currently being managed by surgery DVT prophylaxis - c/w TEDs/Sequentials Disposition: - Rate well controlled on current medication adjustment VS,Fishbone, I+O VS, Fishbone, I+O Laboratory Tests 08/28/20 05:35 Vital Signs Date Time Temp Pulse Resp B/P (MAP) Pulse Ox O2 Delivery O2 Flow Rate FiO2 08/28/20 10:00 96.9 83 17 118/64 (82) 96 Room Air I&O- Last 24 Hours up to 6 AM 08/28/20 06:00 Intake Total 1800 ml Output Total 1900 ml Balance -100 ml RADHA RUTH MD Aug 28, 2020 11:27
[2020-08-28 15:40] VITALS: BP 122/76
[2020-08-28 18:00] VITALS: BP 123/76
[2020-08-28] MEDS: ACETAMINOPH W/CODEINE #3 TAB UD PO PRN (21:26)
[2020-08-28 22:00] VITALS: BP 125/77
[2020-08-29] MEDS: LevoFLOXacin IV 500 MG in IV 1 EA IV SCH (00:26)
[2020-08-29] MEDS: ACETAMINOPH W/CODEINE #3 TAB UD PO PRN ×2 (01:43→21:54)
[2020-08-29 02:00] VITALS: BP 115/69
[2020-08-29] MEDS: metroNIDAZOLE 500 MG in IV 1 EA IV SCH ×3 (05:01→20:00)
[2020-08-29 06:00] VITALS: BP 109/73
[2020-08-29 06:46] LABS: BASO % 0.3 % (0.0-1.0); EOS # 0.1 10^3/uL (0.0-0.5); EOS % 0.8 % (0.0-3.0); HEMATOCRIT 35.9 % (36.0-47.0); HEMOGLOBIN 11.9 g/dl (12.0-15.5); LYMPH # 1.4 10^3/uL (1.5-5.0); LYMPH % 10.3 % (24.0-44.0); MEAN CORPUSCULAR HEMOGLOBIN 32.7 pg (27.0-33.0); MEAN CORPUSCULAR HGB CONC 33.1 g/dl (32.0-36.5); MEAN CORPUSCULAR VOLUME 98.6 fl (80.0-96.0); MONO # 0.7 10^3/uL (0.0-0.8); NEUTROPHILS # 11.6 10^3/uL (1.5-8.5); NEUTROPHILS % 82.4 % (36.0-66.0); PLATELET COUNT, AUTOMATED 457 10^3/uL (150-450); RED BLOOD COUNT 3.64 10^6/uL (4.00-5.40)
[2020-08-29 07:09] LABS: BLOOD UREA NITROGEN 11 MG/DL (7-18); CALCIUM LEVEL 8.3 MG/DL (8.8-10.2); CARBON DIOXIDE LEVEL 26 MEQ/L (21-32); CHLORIDE LEVEL 107 MEQ/L (98-107); CREATININE FOR GFR 0.83 MG/DL (0.55-1.30); GLOMERULAR FILTRATION RATE > 60.0 (>39); GLUCOSE, FASTING 159 MG/DL (70-100); MAGNESIUM LEVEL 2.5 MG/DL (1.8-2.4); POTASSIUM SERUM 3.7 MEQ/L (3.5-5.1); SODIUM LEVEL 139 MEQ/L (136-145)
[2020-08-29] MEDS: LORATADINE 10 MG TAB PO SCH (08:42)
[2020-08-29] MEDS: ASPIRIN 81MG ENTERIC TABLET PO SCH (08:42)
[2020-08-29] MEDS: MULTIVITAMINS/MINERALS THERAP 1 TAB PO SCH (08:42)
[2020-08-29] MEDS: diltiaZEM **CD** 180 MG CAP PO SCH (08:52)
--- NOTE | 2020-08-29 10:25 | IPNPDOC ---
Text Note Date of Service The patient was seen on 08/29/20. NOTE Subjective: Patient is a 75-year-old female with a PMHx A. fib (on ASA), HTN, DM2, DLP, who presented to the emergency room with abdominal pain, found to have periappendiceal abscess. This is currently being managed by surgery and she was admitted to the general surgery service. Hospitalist service was consulted for medical management of A. fib and possible anticoagulation. Patient was seen and examined at the bedside. Patient was seen ambulating in the room. Denies any chest pain, shortness of breath or palpitations. Has not experience any nausea or vomiting. Reports some right lower quadrant abdominal discomfort. Denies any diarrhea, or urinary discomfort. Objective: Vitals (See below) General: Ambulating in the room as well as sitting in the chair, does not appear to be in any distress, is awake, alert and oriented 3 HEENT: NC, AT CVS: +S1S2 Lungs: Fair air entry b/l, no appreciable wheezing, rhonchi or rales Abdomen: Soft, no distention is appreciated. There is tenderness at the right lower quadrant Extremities: Lower extremities do not reveal any pitting edema Assessment and plan: Chronic Atrial fibrillation with uncontrolled ventricular response - Patient remains a symptomatic; denies any chest pain, shortness of breath or palpitations - c/w adjusted rate control with Diltiazem; will transition to long acting dose this morning - Discussed anticoagulation with patient; c/w ASA 81 - as she has been doing as an outpatient - Patient has been advised to consider full anticoagulation; however will pursue this as an outpatient with her PCP - risk (stroke, clots) and benefits were discussed - Will have outpatient follow up with PCP HTN - BP well controlled - c/w Diltiazem, Lisinopril DM2 - Diet controlled DLP - Currently not on a statin - Will have outpatient follow up with PCP Abscess - Currently being managed by surgery DVT prophylaxis - c/w TEDs/Sequentials Disposition: - Continue with current regimen - Abscess management as per surgery VS,Fishbone, I+O VS, Fishbone, I+O Laboratory Tests 08/29/20 06:28 Vital Signs Date Time Temp Pulse Resp B/P (MAP) Pulse Ox O2 Delivery O2 Flow Rate FiO2 08/29/20 08:52 98 121/71 08/29/20 06:00 97.6 18 93 Room Air I&O- Last 24 Hours up to 6 AM 08/29/20 06:00 Intake Total 1410 ml Output Total 1470 ml Balance -60 ml RADHA RUTH MD Aug 29, 2020 10:25
[2020-08-29 14:00] VITALS: BP 139/69
[2020-08-29] MEDS: DIGOXIN 0.25 MG TAB PO SCH ×2 (14:41→20:00)
[2020-08-29 19:58] VITALS: BP 136/71
[2020-08-30] MEDS: LevoFLOXacin IV 500 MG in IV 1 EA IV SCH (00:32)
[2020-08-30] MEDS: DIGOXIN 0.25 MG TAB PO SCH (03:09)
[2020-08-30] MEDS: metroNIDAZOLE 500 MG in IV 1 EA IV SCH ×3 (03:09→20:46)
[2020-08-30 05:37] VITALS: BP 132/86
[2020-08-30 06:32] LABS: BASO # 0.1 10^3/uL (0.0-0.2); BASO % 0.6 % (0.0-1.0); EOS # 0.3 10^3/uL (0.0-0.5); EOS % 3.1 % (0.0-3.0); HEMATOCRIT 38.9 % (36.0-47.0); HEMOGLOBIN 12.5 g/dl (12.0-15.5); LYMPH # 1.8 10^3/uL (1.5-5.0); LYMPH % 17.6 % (24.0-44.0); MEAN CORPUSCULAR HEMOGLOBIN 31.6 pg (27.0-33.0); MEAN CORPUSCULAR HGB CONC 32.1 g/dl (32.0-36.5); MEAN CORPUSCULAR VOLUME 98.5 fl (80.0-96.0); MONO # 0.8 10^3/uL (0.0-0.8); MONO % 7.6 % (2.0-8.0); NEUTROPHILS # 7.3 10^3/uL (1.5-8.5); NEUTROPHILS % 69.6 % (36.0-66.0); PLATELET COUNT, AUTOMATED 514 10^3/uL (150-450); RED BLOOD COUNT 3.95 10^6/uL (4.00-5.40); WHITE BLOOD COUNT 10.5 10^3/uL (4.0-10.0)
[2020-08-30 06:59] LABS: BLOOD UREA NITROGEN 12 MG/DL (7-18); CALCIUM LEVEL 8.6 MG/DL (8.8-10.2); CARBON DIOXIDE LEVEL 26 MEQ/L (21-32); CHLORIDE LEVEL 107 MEQ/L (98-107); GLOMERULAR FILTRATION RATE > 60.0 (>39); GLUCOSE, FASTING 107 MG/DL (70-100); MAGNESIUM LEVEL 2.3 MG/DL (1.8-2.4); POTASSIUM SERUM 4.4 MEQ/L (3.5-5.1); SODIUM LEVEL 140 MEQ/L (136-145)
[2020-08-30] MEDS: ASPIRIN 81MG ENTERIC TABLET PO SCH (08:43)
[2020-08-30] MEDS: LORATADINE 10 MG TAB PO SCH (08:44)
[2020-08-30] MEDS: diltiaZEM **CD** 180 MG CAP PO SCH (08:44)
[2020-08-30] MEDS: MULTIVITAMINS/MINERALS THERAP 1 TAB PO SCH (08:45)
--- NOTE | 2020-08-30 09:15 | IPN ---
PROGRESS NOTE DATE: 08/29/2020 HISTORY: The patient was admitted approximately a week ago with a periappendiceal abscess. She had a percutaneous drain placed the day after admission. She had responded initially very well to drainage with treatment with Zosyn for antibiotic coverage. On the she was noted to have a fever and was found to have some redness around the percutaneous drain site and extending toward the right flank. A CT scan showed a couple of small air bubbles along the drain tract in the subcutaneous fatty tissue. Her antibiotics were changed. She seemed a little better yesterday but today she has increased redness around the drain site and in her right lower quadrant, though she has remained afebrile. OBJECTIVE: VITAL SIGNS: She has been afebrile over the past 24 hours. Her pulse is quite variable and has ranged between the low 70's and a 124. INTAKE AND OUTPUT: Intake and output show that they are relatively balanced over the last 24 hours. Her drain had 20 mL yesterday but had nothing recorded today. PHYSICAL EXAMINATION: GENERAL APPEARANCE: The patient reports that she is feeling somewhat more comfortable. ABDOMEN: Examination shows that the abdomen is soft but at the drain site in the right lower quadrant she has a broad band of redness extending from approximately 10 cm medial to the drain insertion around the flank almost to her lower back. There is the darkest rubor in an area about 10 cm in diameter surrounding the catheter site. LABORATORY STUDIES: Her white count is down to 14 today from 18 yesterday. Hemoglobin is 12, hematocrit 36 and a platelet count of 457,000. Chemistry profile shows normal electrolytes, BUN, creatinine and glucose. IMPRESSION: The patient has responded well to the change of antibiotics but has increased redness around her catheter. I am concerned that there is a developing abscess around the drain tract. PLAN: The patient was counseled for incision and drainage. This will be dealt with in a separate procedure note, but she tolerated this well and there was a large amount of purulent fluid drained with incision and drainage at the drain site. The wound was wicked and a bulky bandage was applied. She will be started on some local wound care. CHERYLE
--- NOTE | 2020-08-30 09:34 | ECGEPIP ---
[facility] Test Date: 2020-08-30 Pat Name: BRYNN HERRERA Department: Room: [place] [address] Gender: Female Waiter/Waitress Head: MAGNOLIA : 1945 Requested By: RADHA RUTH Order Number: [id number] Reading MD: Alf Taylor Measurements Intervals [place] Rate: 100 P: HI: QRS: 46 QRSD: 80 T: -80 QT: 312 QTc: 402 Interpretive Statements Atrial fibrillation with moderate ventricular response Low voltage QRS throughout Nonspecific ST-T wave abnormalities Compared to prior tracing of 08/23/2020, ventricular response is slower Electronically Signed on 08-30-2020 9:34:37 EDT by Alf Taylor
[2020-08-30 10:00] VITALS: BP 137/78
--- NOTE | 2020-08-30 10:50 | IPNPDOC ---
Text Note Date of Service The patient was seen on 08/30/20. NOTE Subjective: Patient is a 75-year-old female with a PMHx A. fib (on ASA), HTN, DM2, DLP, who presented to the emergency room with abdominal pain, found to have periappendiceal abscess. This is currently being managed by surgery and she was admitted to the general surgery service. Hospitalist service was consulted for medical management of A. fib and possible anticoagulation. Patient was seen and examined at the bedside. Patient denies any chest pain, shortness breath or palpitations. Has not experienced any nausea, vomiting or diarrhea. Reports that her abdominal pain is doing better today. Objective: Vitals (See below) General: Sitting up in bed, appears to be comfortable without any acute distress, is awake, alert and oriented to person, place and time HEENT: Normocephalic and atraumatic CVS: +S1S2 Lungs: There appears to be fair air entry bilaterally without any auscultated crackles, wheezing or rhonchi Abdomen: Nondistended, tenderness at right lower quadrant has improved, erythema has been regressing, drainage catheter noted Extremities: No edema of lower extremities Assessment and plan: Chronic Atrial fibrillation with uncontrolled ventricular response - Patient still remains asymptomatic - c/w adjusted rate control with Diltiazem - long acting - s/p Digoxin x3 doses; will check Digoxin level in AM - Discussed anticoagulation with patient; c/w ASA 81 - as she has been doing as an outpatient - Patient has been advised to consider full anticoagulation; however will pursue this as an outpatient with her PCP - risk (stroke, clots) and benefits have been discussed - Will have outpatient follow up with PCP HTN - BP well controlled - c/w Diltiazem, Lisinopril DM2 - Diet controlled DLP - Currently not on a statin - Will have outpatient follow up with PCP Abscess - Currently being managed by surgery DVT prophylaxis - c/w TEDs/Sequentials Disposition: - Continue with current regimen - Abscess management as per surgery VS,Terrybone, I+O VS, Fishbone, I+O Laboratory Tests 08/30/20 06:11 Vital Signs Date Time Temp Pulse Resp B/P (MAP) Pulse Ox O2 Delivery O2 Flow Rate FiO2 08/30/20 10:00 97.6 92 18 137/78 (97) 96 Room Air I&O- Last 24 Hours up to 6 AM 08/30/20 06:00 Intake Total 2220 ml Output Total 1900 ml Balance 320 ml RADHA RUTH MD Aug 30, 2020 10:50
[2020-08-30 14:00] VITALS: BP 128/80
[2020-08-30 18:00] VITALS: BP 128/80
[2020-08-30] MEDS: ACETAMINOPH W/CODEINE #3 TAB UD PO PRN (20:46)
[2020-08-30 22:00] VITALS: BP 131/81
[2020-08-31] MEDS: LevoFLOXacin IV 500 MG in IV 1 EA IV SCH (00:23)
[2020-08-31] MEDS: metroNIDAZOLE 500 MG in IV 1 EA IV SCH ×2 (03:50→12:48)
[2020-08-31 06:00] VITALS: BP 130/82
[2020-08-31 07:39] LABS: HEMATOCRIT 38.1 % (36.0-47.0); HEMOGLOBIN 12.4 g/dl (12.0-15.5); MEAN CORPUSCULAR HEMOGLOBIN 32.2 pg (27.0-33.0); MEAN CORPUSCULAR HGB CONC 32.5 g/dl (32.0-36.5); PLATELET COUNT, AUTOMATED 513 10^3/uL (150-450); RED BLOOD COUNT 3.85 10^6/uL (4.00-5.40); WHITE BLOOD COUNT 8.8 10^3/uL (4.0-10.0)
[2020-08-31 08:21] LABS: BLOOD UREA NITROGEN 12 MG/DL (7-18); CALCIUM LEVEL 9.1 MG/DL (8.8-10.2); CARBON DIOXIDE LEVEL 26 MEQ/L (21-32); CHLORIDE LEVEL 108 MEQ/L (98-107); CREATININE FOR GFR 0.67 MG/DL (0.55-1.30); GLOMERULAR FILTRATION RATE > 60.0 (>39); GLUCOSE, FASTING 105 MG/DL (70-100); MAGNESIUM LEVEL 2.1 MG/DL (1.8-2.4); POTASSIUM SERUM 4.9 MEQ/L (3.5-5.1); SODIUM LEVEL 139 MEQ/L (136-145)
[2020-08-31 08:52] VITALS: BP 136/83
[2020-08-31] MEDS: diltiaZEM **CD** 180 MG CAP PO SCH (08:52)
[2020-08-31] MEDS: LORATADINE 10 MG TAB PO SCH (08:52)
[2020-08-31] MEDS: ASPIRIN 81MG ENTERIC TABLET PO SCH (08:52)
[2020-08-31] MEDS: MULTIVITAMINS/MINERALS THERAP 1 TAB PO SCH (08:53)
--- NOTE | 2020-08-31 10:34 | IPNPDOC ---
Text Note Date of Service The patient was seen on 08/31/20. NOTE Subjective: Patient is a 75-year-old female with a PMHx A. fib (on ASA), HTN, DM2, DLP, who presented to the emergency room with abdominal pain, found to have periappendiceal abscess. This is currently being managed by surgery and she was admitted to the general surgery service. Hospitalist service was consulted for medical management of A. fib and possible anticoagulation. Patient was seen and examined at the bedside. Reports that she will be going home today. Denies any chest pain, shortness breath, palpitations. Reports that her abdominal pain is resolved. Has not experience any nausea or vomiting. Denies any urinary discomfort, but does report some loose bowel movements. Objective: Vitals (See below) General: Laying in bed, appears comfortable without acute distress, is awake, alert, oriented 3 HEENT: AT, NC CVS: +S1S2 Lungs: No wheezing, crackles or rhonchi Abdomen: Nondistended. Right lower quadrant does not have any significant tenderness, drainage catheter noted Extremities: Without edema Assessment and plan: Chronic Atrial fibrillation with uncontrolled ventricular response - Rate is appropriately controlled - c/w adjusted rate control with Diltiazem - long acting - s/p Digoxin x3 doses; Digoxin level noted - Discussed anticoagulation with patient; c/w ASA 81 - as she has been doing as an outpatient - Patient has been advised to consider full anticoagulation; however will pursue this as an outpatient with her PCP - risk (stroke, clots) and benefits have been discussed; as verbalized understanding - Will have outpatient follow up with PCP HTN - BP well controlled - c/w Diltiazem, Lisinopril DM2 - Diet controlled DLP - Currently not on a statin - Outpatient follow up with PCP Abscess - Currently being managed by surgery DVT prophylaxis - c/w TEDs/Sequentials Disposition: - Continue with current regimen; Hospitalist service will now sign off - please re-consult as needed - Abscess management as per surgery Torres JONES, I+O Torres JONES, I+O Laboratory Tests 08/31/20 06:54 Vital Signs Date Time Temp Pulse Resp B/P (MAP) Pulse Ox O2 Delivery O2 Flow Rate FiO2 08/31/20 08:52 113 136/83 08/31/20 06:00 97.6 20 96 Room Air I&O- Last 24 Hours up to 6 AM 08/31/20 06:00 Intake Total 2300 ml Output Total 1670 ml Balance 630 ml RADHA RUTH MD Aug 31, 2020 10:34
[2020-08-31 14:00] VITALS: BP 134/82
[2020-08-31] MEDS ORDERED: FLAG500T PO (14:31)
[2020-08-31] MEDS ORDERED: LEVO500T3 PO (14:31)
[2020-08-31] MEDS ORDERED: CARD180C4 PO (14:31)
--- NOTE | 2020-09-03 15:22 | DS.PDOC ---
Discharge Summary General Date of Admission Aug 22, 2020 at 23:58 Date of Discharge 08/31/20 Discharge Summary General Surgery Dr Still PROCEDURES PERFORMED DURING STAY: Abscess drain placement 08/23/20. Ramon VÁSQUEZ I/D drain tract abscess 08/29/20. Dr. Still. ADMITTING DIAGNOSES: 1. Appendicitis with contained abscess. 2. Chronic Atrial fibrillation. 3. Hypertension. 4. Hyperlipidemia. 5. Diabetes mellitus type 2. 6. Obesity. DISCHARGE DIAGNOSES: 1. Appendicitis with contained abscess. 2. Chronic Atrial fibrillation. 3. Hypertension. 4. Hyperlipidemia. 5. Diabetes mellitus type 2. 6. Obesity. HISTORY OF PRESENT ILLNESS: The patient is a 75-year-old female who presented to the emergency department 08/22/20 reporting right lower quadrant abdominal pain which had started 5 days prior. It had been steadily worsening so she came in for evaluation. HOSPITAL COURSE: CT scan abdomen/pelvis in the emergency room indicated abscess in the right lower quadrant surrounding inflamed appendix. Surgery was consulted and the patient was admitted for further management. Recommendation was to begin IV antibiotics and percutaneous drain placement. Patient had percutaneous abscess drain placement in IR 08/23/20. The patient initially responded well with drain placement and Zosyn IV. However, on 08/27 she was noted to have fever and redness around the drain site extending toward the right flank. CT scan showed small air bubbles along the drain tract and subcutaneous fatty tissue. Her antibiotic regimen was adjusted to Levaquin/Flagyl. The patient was still noted to have erythema around the catheter site and on 08/29/20 Dr. Still proceeded with I/D of the abscess around the drain tract with large amount of purulent fluid drained. The wound was wicked and bulky bandage was applied. Local wound care was initiated. Subsequently erythema around the drain tube site improved. By 08/31/20 patient was felt stable for discharge, the patient's drain was removed. Additionally, during her stay the patient was noted to have atrial fibrillation with suboptimal rate control, hospitalist was consulted. The patient was given 3 doses of digoxin and diltiazem was increased to 360 mg daily for additional rate control. Hospitalist also discussed anticoagulation with the patient during her stay with plan to continue with aspirin 81 mg daily for now and further discuss risks versus benefits of full anticoagulation further with her PCP as outpatient. DISCHARGE MEDICATIONS: Please see below. ALLERGIES: Please see below. PHYSICAL EXAMINATION ON DISCHARGE: VITAL SIGNS: Please see below. GENERAL: NAD HEENT:MMM CARDIOVASCULAR EXAMINATION: S1S2 irreg RESPIRATORY EXAMINATION: CTA ABDOMINAL EXAMINATION: soft, ND, less ttp around drain tube site. EXTREMITIES: no edema LABORATORY DATA: Please see below. IMAGING: CT A/P 08/22/20 IMPRESSION: Ruptured appendicitis with periappendiceal abscess which contains a few appendicoliths and measures 5.1 x 5.5 x 5.0 cm. DISCHARGE INSTRUCTIONS: ACTIVITY: As tolerated DIET:regular DISCHARGE PLAN: DC home Levaquin 750 mg by mouth daily for an additional 7 days. Flagyl 500 mg by mouth 3 times a day for an additional 7 days. Diltiazem was increased to 360 mg by mouth daily for additional rate control. Follow-up with Dr. Still in 2 weeks. Follow-up with PCP in 5-7 days. DISCHARGE CONDITION: Stable. TIME SPENT ON DISCHARGE: Greater than 30 minutes. Vital Signs/I&Os Vital Signs Date Time Temp Pulse Resp B/P (MAP) Pulse Ox O2 Delivery O2 Flow Rate FiO2 08/31/20 14:00 97.9 89 18 134/82 (99) 97 Room Air Discharge Medications Scheduled Calcium Carbonate (Calcium) 500 Mg Tablet, 500 MG PO DAILY, (Reported) Cholecalciferol (Vitamin D3) (Vitamin D3) 1,000 Unit Tablet, 1,000 UNITS PO DAILY, (Reported) Diltiazem Hcl (Cardizem Cd) 180 Mg Cap.er.24h, 360 MG PO DAILY Levofloxacin (Levofloxacin) 500 Mg Tablet, 1 TAB PO DAILY Lisinopril (Lisinopril) 20 Mg Tab, 20 MG PO DAILY, (Reported) Loratadine (Loratadine) 10 Mg Tab, 10 MG PO DAILY, (Reported) Metronidazole (Flagyl) 500 Mg Tablet, 500 MG PO TID Multivitamins (Thera M Plus Tablet) 1 Each Tablet, 1 TAB PO DAILY, (Reported) Mv-Min/Vit C/Glut/Lysine/Hc124 (Airborne Tablet Chewable) 1 Each Tab.chew, 1 CHW PO DAILY, (Reported) Zinc (Zinc) 50 Mg Tablet, 50 MG PO DAILY, (Reported) Allergies Coded Allergies: No Known Allergies (Unverified , 07/19/14) Una Leblanc Sep 03, 2020 15:22
== END 2020-08-31 15:25 | disposition home health service (06) | DRG 372 ==
LOC: M ED 18:34 → M ED INP 23:58 → ENRESERV 08-23 01:21 → M MS5PR 08-23 01:55
PROVIDERS: ADMIT Surgery; ATTEND Surgery
PROC: 0D9J30Z Drainage of Appendix with Drainage Device, Percutaneous Approach (ICD-10-PCS; principal; 2020-08-23 12:00)
DX: K35.33 Acute appendicitis with perforation, localized peritonitis, and gangrene, with abscess (principal); I48.20 Chronic atrial fibrillation, unspecified; I10 Essential (primary) hypertension; E11.9 Type 2 diabetes mellitus without complications; E66.9 Obesity, unspecified; Z79.899 Other long term (current) drug therapy; Z79.82 Long term (current) use of aspirin; E78.5 Hyperlipidemia, unspecified

== ENCOUNTER → 2020-09-13 | Outpatient (REF) | payer MEDICARE ==
[~2020-09-13] MED LIST changes: +AIRB1CHW PO; +CARD180C4 PO; +D31000TA2 PO; +DILT1TAB3; +DILT240C82 PO; +FLAG500T PO; +LEVO500T3 PO; +OYST1TAB PO; +VITMTA PO; +ZINC1TAB2 PO
[2020-09-13 17:01] LABS: HEMOGLOBIN A1c 5.6 %
[2020-09-13 17:19] LABS: ALBUMIN 3.4 GM/DL (3.2-5.2); BILIRUBIN,TOTAL 0.5 MG/DL (0.2-1.0); CALCIUM LEVEL 9.5 MG/DL (8.8-10.2); CHOLESTEROL RISK RATIO 4.118 (<5); CREATININE FOR GFR 0.99 MG/DL (0.55-1.30); FREE T4 1.07 NG/DL (0.76-1.46); GLOMERULAR FILTRATION RATE 57.9 (>39); POTASSIUM SERUM 4.6 MEQ/L (3.5-5.1); THYROID STIMULATING HORMONE 0.751 uIU/ML (0.358-3.740); TOTAL PROTEIN 6.4 GM/DL (6.4-8.2)
[2020-09-13 17:25] LABS: HEMATOCRIT 42.6 % (36.0-47.0); HEMOGLOBIN 13.8 g/dl (12.0-15.5); MEAN CORPUSCULAR HEMOGLOBIN 32.9 pg (27.0-33.0); MEAN CORPUSCULAR HGB CONC 32.4 g/dl (32.0-36.5); MEAN CORPUSCULAR VOLUME 101.4 fl (80.0-96.0); PLATELET COUNT, AUTOMATED 372 10^3/uL (150-450); WHITE BLOOD COUNT 6.9 10^3/uL (4.0-10.0)
== END ==
LOC: M SFHCADAM 13:56
PROVIDERS: ATTEND Family Medicine
DX: K35.33 Acute appendicitis with perforation, localized peritonitis, and gangrene, with abscess (principal); E78.5 Hyperlipidemia, unspecified; E11.9 Type 2 diabetes mellitus without complications; I48.0 Paroxysmal atrial fibrillation

== ENCOUNTER → 2021-03-18 | Outpatient (REF) | payer MEDICARE | LOC: M WUC 20:07 | PROVIDERS: ATTEND Physician Assistant | DX: R82.90 Unspecified abnormal findings in urine (principal) ==

== ENCOUNTER → 2022-12-17 | Outpatient (CLI) | payer MEDICARE ==
[~2022-12-17] MED LIST changes: -D31000TA2 PO; +LEVO1TAB39 PO; -LEVO500T3 PO; +VITA100093 PO
[2022-12-17 17:32] LABS: HEMATOCRIT 47.1 % (36.0-47.0); HEMOGLOBIN 15.6 g/dl (12.0-15.5); MEAN CORPUSCULAR HEMOGLOBIN 34.2 pg (27.0-33.0); MEAN CORPUSCULAR HGB CONC 33.1 g/dl (32.0-36.5); MEAN CORPUSCULAR VOLUME 103.3 fl (80.0-96.0); PLATELET COUNT, AUTOMATED 249 10^3/uL (150-450); RED BLOOD COUNT 4.56 10^6/uL (4.00-5.40); WHITE BLOOD COUNT 6.2 10^3/uL (4.0-10.0)
[2022-12-17 17:54] LABS: THYROID STIMULATING HORMONE 1.247 uIU/ML (0.55-4.78)
[2022-12-17 17:55] LABS: ALBUMIN 3.8 G/DL (3.2-5.2); ALKALINE PHOSPHATASE 110 U/L (46-116); ALT/SGPT 25 U/L (7.0-40); AST/SGOT < 8 U/L (<34); BILIRUBIN,TOTAL 0.7 MG/DL (0.3-1.2); BLOOD UREA NITROGEN 20 MG/DL (9-23); CALCIUM LEVEL 9.3 MG/DL (8.3-10.6); CARBON DIOXIDE LEVEL 27 MMOL/L (20-31); CHLORIDE LEVEL 103 MMOL/L (98-107); CHOLESTEROL LEVEL 216 MG/DL (<200); CHOLESTEROL RISK RATIO 2.98 (<5); FREE T4 0.94 NG/DL (0.89-1.76); GLOMERULAR FILTRATION RATE > 60.0 (>39); GLUCOSE, FASTING 108 MG/DL (74-106); HDL CHOLESTEROL 72.3 MG/DL (>40); LDL CHOLESTEROL 121.5 MG/DL (<100); MAGNESIUM LEVEL 1.8 MG/DL (1.8-2.4); NON-HDL-C 143.7 MG/DL; SODIUM LEVEL 136 MMOL/L (136-145); TOTAL PROTEIN 6.5 G/DL (5.7-8.2); TRIGLYCERIDES LEVEL 111 MG/DL (<150)
== END ==
LOC: M WUC 11:04
PROVIDERS: ATTEND Family Medicine
DX: I48.0 Paroxysmal atrial fibrillation (principal); I11.9 Hypertensive heart disease without heart failure; E78.5 Hyperlipidemia, unspecified

== ENCOUNTER → 2022-12-23 | Outpatient (REF) | payer MEDICARE ==
[2022-12-23 17:30] LABS: CREATININE, URINE 152.2 MG/DL; MAU/CREAT RATIO 6.5 MCG/MG (0.0-30.0)
[2022-12-23 19:18] LABS: HEMOGLOBIN A1c 5.4 % (4.0-6.0)
== END ==
LOC: M SFHCADAM 11:57
PROVIDERS: ATTEND Family Medicine
DX: E11.9 Type 2 diabetes mellitus without complications (principal)

== ENCOUNTER 2023-06-15 15:06 | Emergency (ER) | payer MEDICARE ==
[~2023-06-15] VITALS: Ht 162.6 cm; Wt 82.0 kg
[2023-06-15] MEDS ORDERED: DILT180C70 (15:21)
[2023-06-15 20:21] VITALS: BP 128/88; TEMP 98.4; O2SAT 99
== END 2023-06-15 20:24 | disposition home or self-care (01) ==
LOC: M ED 15:06
DX: S00.33XA Contusion of nose, initial encounter (principal); W00.0XXA Fall on same level due to ice and snow, initial encounter; I10 Essential (primary) hypertension; M54.50 Low back pain, unspecified; K57.92 Diverticulitis of intestine, part unspecified, without perforation or abscess without bleeding; F10.10 Alcohol abuse, uncomplicated; Z86.79 Personal history of other diseases of the circulatory system; Z79.811 Long term (current) use of aromatase inhibitors; Z79.899 Other long term (current) drug therapy

== ENCOUNTER → 2023-07-20 | Outpatient (CLI) | payer MEDICARE ==
[~2023-07-20] MED LIST changes: +DILT180C70
[2023-07-20 11:13] LABS: HEMATOCRIT 42.2 % (36.0-47.0); HEMOGLOBIN 14.1 g/dl (12.0-15.5); MEAN CORPUSCULAR HEMOGLOBIN 34.4 pg (27.0-33.0); MEAN CORPUSCULAR HGB CONC 33.4 g/dl (32.0-36.5); MEAN CORPUSCULAR VOLUME 102.9 fl (80.0-96.0); PLATELET COUNT, AUTOMATED 263 10^3/uL (150-450); WHITE BLOOD COUNT 6.6 10^3/uL (4.0-10.0)
[2023-07-20 11:21] LABS: HEMOGLOBIN A1c 5.4 % (4.0-6.0)
[2023-07-20 11:39] LABS: CREATININE, URINE 71.8 MG/DL
[2023-07-20 11:40] LABS: ALBUMIN 3.4 G/DL (3.2-5.2); ALKALINE PHOSPHATASE 135 U/L (46-116); ALT/SGPT 25 U/L (7.0-40); AST/SGOT 15 U/L (<34); BILIRUBIN,TOTAL 0.6 MG/DL (0.3-1.2); BLOOD UREA NITROGEN 12 MG/DL (9-23); CALCIUM LEVEL 9.1 MG/DL (8.3-10.6); CARBON DIOXIDE LEVEL 30 MMOL/L (20-31); CHLORIDE LEVEL 104 MMOL/L (98-107); CHOLESTEROL LEVEL 200 MG/DL (<200); CHOLESTEROL RISK RATIO 2.95 (<5); CREATININE FOR GFR 0.73 MG/DL (0.55-1.30); GLOMERULAR FILTRATION RATE > 60.0 (>32); GLUCOSE, FASTING 103 MG/DL (74-106); HDL CHOLESTEROL 67.7 MG/DL (>40); LDL CHOLESTEROL 109.5 MG/DL (<100); NON-HDL-C 132.3 MG/DL; POTASSIUM SERUM 4.4 MMOL/L (3.5-5.1); SODIUM LEVEL 140 MMOL/L (136-145); TOTAL PROTEIN 6.2 G/DL (5.7-8.2); TRIGLYCERIDES LEVEL 114 MG/DL (<150)
[2023-07-20 11:41] LABS: MAU/CREAT RATIO 9.7 MCG/MG (0.0-30.0)
== END ==
LOC: M WUC 08:13
PROVIDERS: ATTEND Family Medicine
DX: E11.9 Type 2 diabetes mellitus without complications (principal); I48.0 Paroxysmal atrial fibrillation; E78.5 Hyperlipidemia, unspecified

== ENCOUNTER → 2023-08-21 | Outpatient (CLI) | payer MEDICARE | LOC: M WUC 14:51 | PROVIDERS: ATTEND Family Medicine | DX: M54.30 Sciatica, unspecified side (principal); M51.36 Other intervertebral disc degeneration, lumbar region ==

== ENCOUNTER → 2023-10-02 | Outpatient (CLI) | payer MEDICARE | LOC: M WUC 12:11 | PROVIDERS: ATTEND Physician Assistant | DX: M16.11 Unilateral primary osteoarthritis, right hip (principal) ==

== ENCOUNTER → 2023-11-23 | Outpatient (CLI) | payer MEDICARE ==
[~2023-11-23] MED LIST changes: +ISOVUE-300 61% 100ML VIAL As Ordered ONE; +LIDOCAINE 1% MDV 20ML VIAL As Ordered ONE; +methylPREDNISolone SUSP 40MG/ML 1ML VIAL (DEPO MEDROL) As Ordered ONE
== END ==
LOC: M RAD 14:16
PROVIDERS: ATTEND Orthopaedic Surgery
DX: M16.11 Unilateral primary osteoarthritis, right hip (principal)
CPT/HCPCS: 20610; 77002; J0665; J1010; Q9967

== ENCOUNTER → 2023-12-23 | Outpatient (CLI) | payer MEDICARE ==
[~2023-12-23] MED LIST changes: -ISOVUE-300 61% 100ML VIAL As Ordered ONE; -LIDOCAINE 1% MDV 20ML VIAL As Ordered ONE; -methylPREDNISolone SUSP 40MG/ML 1ML VIAL (DEPO MEDROL) As Ordered ONE
[2023-12-23 12:58] LABS: HEMATOCRIT 42.3 % (36.0-47.0); HEMOGLOBIN 14.1 g/dl (12.0-15.5); MEAN CORPUSCULAR HEMOGLOBIN 34.4 pg (27.0-33.0); MEAN CORPUSCULAR HGB CONC 33.3 g/dl (32.0-36.5); MEAN CORPUSCULAR VOLUME 103.2 fl (80.0-96.0); PLATELET COUNT, AUTOMATED 277 10^3/uL (150-450); WHITE BLOOD COUNT 5.3 10^3/uL (4.0-10.0)
[2023-12-23 13:21] LABS: HEMOGLOBIN A1c 5.6 % (4.0-6.0)
[2023-12-23 13:32] LABS: ALBUMIN 3.5 G/DL (3.2-5.2); ALKALINE PHOSPHATASE 123 U/L (46-116); ALT/SGPT 33 U/L (7.0-40); AST/SGOT 16 U/L (<34); BILIRUBIN,TOTAL 0.6 MG/DL (0.3-1.2); BLOOD UREA NITROGEN 14 MG/DL (9-23); CALCIUM LEVEL 9.4 MG/DL (8.3-10.6); CARBON DIOXIDE LEVEL 27 MMOL/L (20-31); CHLORIDE LEVEL 105 MMOL/L (98-107); CHOLESTEROL LEVEL 239 MG/DL (<200); CHOLESTEROL RISK RATIO 3.47 (<5); GLOMERULAR FILTRATION RATE > 60.0 (>32); GLUCOSE, FASTING 119 MG/DL (74-106); HDL CHOLESTEROL 68.8 MG/DL (>40); NON-HDL-C 170.2 MG/DL; POTASSIUM SERUM 4.8 MMOL/L (3.5-5.1); SODIUM LEVEL 137 MMOL/L (136-145); TOTAL PROTEIN 6.1 G/DL (5.7-8.2); TRIGLYCERIDES LEVEL 141 MG/DL (<150)
== END ==
LOC: M WUC 09:13
PROVIDERS: ATTEND Family Medicine
DX: I48.0 Paroxysmal atrial fibrillation (principal); E11.9 Type 2 diabetes mellitus without complications; E78.5 Hyperlipidemia, unspecified

== ENCOUNTER 2024-02-24 06:59 | Emergency (ER) | payer MEDICARE ==
[~2024-02-24] VITALS: Ht 162.6 cm; Wt 82.7 kg
[~2024-02-24 06:59] MED LIST changes: -DILT180C70; +DILT180C70 PO
[2024-02-24] MEDS ORDERED: ELIQ5TAB PO (07:14)
[2024-02-24] MEDS: ACETAMINOPHEN 325 MG TAB PO ONE (08:09)
[2024-02-24] MEDS ORDERED: HOME MED LIST COMPLETE! XX SCH (09:00)
[2024-02-24 09:34] VITALS: BP 166/80; TEMP 97.3; O2SAT 97
== END 2024-02-24 09:36 | disposition home or self-care (01) ==
LOC: M ED 06:59
DX: M17.12 Unilateral primary osteoarthritis, left knee (principal); M25.462 Effusion, left knee; I10 Essential (primary) hypertension; K57.92 Diverticulitis of intestine, part unspecified, without perforation or abscess without bleeding; Z90.89 Acquired absence of other organs; Z86.79 Personal history of other diseases of the circulatory system; Z79.01 Long term (current) use of anticoagulants; Z79.811 Long term (current) use of aromatase inhibitors; Z79.899 Other long term (current) drug therapy

== ENCOUNTER → 2024-02-29 | Outpatient (CLI) | payer MEDICARE ==
[~2024-02-29] MED LIST changes: +ELIQ5TAB PO; +ISOVUE-300 61% 100ML VIAL As Ordered ONE; +methylPREDNISolone SUSP 40MG/ML 1ML VIAL (DEPO MEDROL) As Ordered ONE
== END ==
LOC: M RAD 11:24
PROVIDERS: ATTEND Orthopaedic Surgery
DX: M16.11 Unilateral primary osteoarthritis, right hip (principal)
CPT/HCPCS: 20610; 77002; J0665; J1010; Q9967

== ENCOUNTER → 2024-05-12 | Outpatient (CLI) | payer MEDICARE ==
[~2024-05-12] MED LIST changes: -ISOVUE-300 61% 100ML VIAL As Ordered ONE; -methylPREDNISolone SUSP 40MG/ML 1ML VIAL (DEPO MEDROL) As Ordered ONE
== END ==
LOC: M SOG 07:55
PROVIDERS: ATTEND Orthopaedic Surgery
DX: M16.11 Unilateral primary osteoarthritis, right hip (principal); Z53.9 Procedure and treatment not carried out, unspecified reason

== ENCOUNTER → 2024-05-16 | Outpatient (CLI) | payer MEDICARE | LOC: M SOG 07:52 | PROVIDERS: ATTEND Orthopaedic Surgery | DX: M16.11 Unilateral primary osteoarthritis, right hip (principal) ==

== ENCOUNTER → 2024-06-15 | Outpatient (CLI) | payer MEDICARE ==
[~2024-06-15] MED LIST changes: +ISOVUE-300 61% 100ML VIAL As Ordered ONE; +methylPREDNISolone SUSP 40MG/ML 1ML VIAL (DEPO MEDROL) As Ordered ONE
== END ==
LOC: M RAD 13:54
PROVIDERS: ATTEND Orthopaedic Surgery
DX: M16.11 Unilateral primary osteoarthritis, right hip (principal)
CPT/HCPCS: 20610; 77002; J0665; J1010; Q9967

== ENCOUNTER → 2024-08-15 | Outpatient (CLI) | payer MEDICARE ==
[~2024-08-15] MED LIST changes: -ISOVUE-300 61% 100ML VIAL As Ordered ONE; -methylPREDNISolone SUSP 40MG/ML 1ML VIAL (DEPO MEDROL) As Ordered ONE
== END ==
LOC: M SOG 07:57
PROVIDERS: ATTEND Orthopaedic Surgery
DX: M16.11 Unilateral primary osteoarthritis, right hip (principal); Z53.9 Procedure and treatment not carried out, unspecified reason

== ENCOUNTER → 2024-08-23 | Outpatient (CLI) | payer MEDICARE ==
[~2024-08-23] MED LIST changes: +ISOVUE-300 61% 100ML VIAL As Ordered ONE; +LIDOCAINE 1% MDV 20ML VIAL As Ordered ONE; +methylPREDNISolone SUSP 40MG/ML 1ML VIAL (DEPO MEDROL) As Ordered ONE
== END ==
LOC: M RAD 13:29
PROVIDERS: ATTEND Orthopaedic Surgery
DX: M16.11 Unilateral primary osteoarthritis, right hip (principal)
CPT/HCPCS: 20610; 77002; J0665; J1010; Q9967

== ENCOUNTER → 2025-01-30 | Outpatient (CLI) | payer MEDICARE ==
[~2025-01-30] MED LIST changes: +ISOVUE-300 61% 100 ML VIAL As Ordered ONE; -ISOVUE-300 61% 100ML VIAL As Ordered ONE; -LIDOCAINE 1% MDV 20ML VIAL As Ordered ONE; +methylPREDNISolone SUSP 40 MG/ML 1 ML VIAL As Ordered ONE; -methylPREDNISolone SUSP 40MG/ML 1ML VIAL (DEPO MEDROL) As Ordered ONE
== END ==
LOC: M RAD 14:11
PROVIDERS: ATTEND Orthopaedic Surgery
DX: M16.11 Unilateral primary osteoarthritis, right hip (principal)
CPT/HCPCS: 20610; 77002; J0665; J1010; Q9967

== ENCOUNTER → 2025-03-21 | Outpatient (CLI) | payer MEDICARE ==
[~2025-03-21] MED LIST changes: -ISOVUE-300 61% 100 ML VIAL As Ordered ONE; -methylPREDNISolone SUSP 40 MG/ML 1 ML VIAL As Ordered ONE
== END ==
LOC: M SOG 07:28
PROVIDERS: ATTEND Orthopaedic Surgery
DX: M16.11 Unilateral primary osteoarthritis, right hip (principal)

== ENCOUNTER → 2025-03-28 | Outpatient (CLI) | payer MEDICARE | LOC: M SOG 07:20 | PROVIDERS: ATTEND Orthopaedic Surgery | DX: M16.11 Unilateral primary osteoarthritis, right hip (principal) ==

== ENCOUNTER → 2025-04-28 | Outpatient (CLI) | payer MEDICARE ==
[~2025-04-28] MED LIST changes: +ISOVUE-300 61% 100 ML VIAL As Ordered ONE; +methylPREDNISolone SUSP 40 MG/ML 1 ML VIAL As Ordered ONE
== END ==
LOC: M RAD 14:46
PROVIDERS: ATTEND Orthopaedic Surgery
DX: M16.11 Unilateral primary osteoarthritis, right hip (principal)
CPT/HCPCS: 20610; 77002; J0665; J1010; Q9967